=== PATIENT | male | born 1955 | race African-American/Black ===

== ENCOUNTER 2016-11-25 00:33 | Emergency (ER) | payer MEDICARE, OTHER ==
[2016-11-25 00:41] VITALS: TEMP 99
[2016-11-25] MEDS ORDERED: SODIUM CHLORIDE 0.9% 500 ML IV STA (00:49)
[2016-11-25] MEDS ORDERED: amLODIPine 10 MG TAB PO STA (01:06)
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
[2016-11-25 01:25] LABS: Basophils % (A) 0 %; CH 27.8; CHCM 33.2; Eosinophils # (A) 0.1 k/uL (0-0.7); Eosinophils % (A) 2 %; HCT 44.4 % (39.0-53.0); HDW 3.05; HGB 14.2 gm/dL (13.0-17.5); Luc # (Auto) 0.07; Luc % (Auto) 1; Lymphocytes # (A) 1.3 k/uL (1.0-4.8); Lymphocytes % (A) 21 %; MCH 27.1 pg (25.0-35.0); MCHC 32.1 g/dL (31.0-37.0); MCV 84.4 fL (80.0-100.0); Mean Platelet Volume 7.3; Monocytes # (A) 0.4 k/uL (0-1.0); Monocytes % (A) 7 %; Neutrophils # (A) 4.1 k/uL (1.3-7.7); Neutrophils % (A) 69 %; RBC 5.26 m/uL (4.30-5.90); RDW 15.1 % (11.5-15.5); WBC 5.9 k/uL (3.8-10.6); WBC (Perox) 5.69
[2016-11-25 01:32] LABS: INR 1.2 (<1.2); Prothrombin Time 12.3 sec (9.0-12.0)
[2016-11-25 01:37] LABS: ALT 47 U/L (21-72); AST 45 U/L (17-59); Acetaminophen <10.0 ug/mL; Alcohol <10 mg/dL; Alkaline Phosphatase 78 U/L (38-126); Anion Gap 14 mmol/L; Blood Urea Nitrogen 12 mg/dL (9-20); Carbon Dioxide 22 mmol/L (22-30); Chloride 106 mmol/L (98-107); Glucose 103 mg/dL (74-99); Non-African American GFR(MDRD) >60 (>60 ml/min/1.73 sqM); Potassium 3.1 mmol/L (3.5-5.1); Salicylate <1.0 mg/dL; Sodium 142 mmol/L (137-145)
[2016-11-25] MEDS ORDERED: POTASSIUM CHLORIDE ER 20 MEQ TAB.ER PO STA (02:15)
--- NOTE | 2016-11-25 03:06 | XR ---
EXAM: XR Chest, 2 Views CLINICAL HISTORY: Reason: Cough TECHNIQUE: Frontal and lateral views of the chest. COMPARISON: Chest radiograph on 10/07/2015 FINDINGS: Lungs/pleura: Normal. No focal consolidation. No pleural effusion or pneumothorax. Heart/mediastinum: Stable mild enlargement of the cardiac silhouette. Soft tissues: Unremarkable. Bones: No acute fracture. Degenerative changes of the spine. Possible resection changes of the distal right clavicle. IMPRESSION: No acute disease identified.
[2016-11-25 03:45] VITALS: BP 172/110
[2016-11-25 04:30] VITALS: PULSE 85; RESP 16
== END 2016-11-25 04:27 | disposition home or self-care (01) ==
LOC: EC 00:33
DX: G89.29 Other chronic pain (principal); M79.662 Pain in left lower leg; M79.661 Pain in right lower leg; F14.10 Cocaine abuse, uncomplicated; I51.7 Cardiomegaly; Z87.891 Personal history of nicotine dependence; Z96.653 Presence of artificial knee joint, bilateral; Z86.14 Personal history of Methicillin resistant Staphylococcus aureus infection; Z88.2 Allergy status to sulfonamides; Z88.1 Allergy status to other antibiotic agents; Z79.1 Long term (current) use of non-steroidal anti-inflammatories (NSAID); Z79.899 Other long term (current) drug therapy
CPT/HCPCS: 36415; 71020; 80053; 80306; 80320; 83520; 83605; 83690; 85025; 85610; 93005; 99283

== ENCOUNTER 2016-11-25 09:49 | Inpatient (IN) | payer MEDICARE ==
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
[2016-11-25] MEDS ORDERED: LISINOPRIL 10 MG TAB PO STA (11:58)
[2016-11-25] MEDS ORDERED: HALOPERIDOL LACTATE 5 MG/ML 1 ML VIAL IM STA (12:16)
[2016-11-25] MEDS ORDERED: LORazepam 2 MG/ML INJ IM STA (12:17)
[2016-11-25] MEDS ORDERED: cloNIDine HCL 0.1 MG TAB PO STA (14:18)
[2016-11-25] MEDS ORDERED: MAG HYDROX/AL HYDROX/SIMETH 30 ML CUP PO PRN (17:11)
[2016-11-25] MEDS ORDERED: ZIPRASIDONE 20 MG VIAL IM PRN (17:11)
[2016-11-25] MEDS ORDERED: MAGNESIUM HYDROXIDE 2,400 MG/10 ML CUP PO PRN (17:11)
[2016-11-25] MEDS: NICOTINE 21MG/24HR PATCH TRANSDERM SCH (18:11)
[2016-11-26 08:27] LABS: Basophils % (A) 0 %; CH 26.9; CHCM 31.4; Eosinophils # (A) 0.2 k/uL (0-0.7); Eosinophils % (A) 3 %; HCT 47.6 % (39.0-53.0); HDW 3.02; HGB 15.1 gm/dL (13.0-17.5); Hypochromasia Slight; Luc # (Auto) 0.09; Luc % (Auto) 2; Lymphocytes % (A) 37 %; MCH 27.4 pg (25.0-35.0); MCHC 31.7 g/dL (31.0-37.0); MCV 86.3 fL (80.0-100.0); Mean Platelet Volume 7.1; Monocytes # (A) 0.3 k/uL (0-1.0); Monocytes % (A) 5 %; Neutrophils # (A) 2.8 k/uL (1.3-7.7); Neutrophils % (A) 52 %; RBC 5.52 m/uL (4.30-5.90); RDW 14.1 % (11.5-15.5); WBC 5.4 k/uL (3.8-10.6); WBC (Perox) 5.68
[2016-11-26 09:18] LABS: ALT 33 U/L (21-72); AST 39 U/L (17-59); Alkaline Phosphatase 63 U/L (38-126); Anion Gap 13 mmol/L; Blood Urea Nitrogen 12 mg/dL (9-20); Calcium 9.6 mg/dL (8.4-10.2); Carbon Dioxide 21 mmol/L (22-30); Chloride 109 mmol/L (98-107); Glucose 87 mg/dL (74-99); Non-African American GFR(MDRD) >60 (>60 ml/min/1.73 sqM); Potassium 3.9 mmol/L (3.5-5.1); Sodium 143 mmol/L (137-145); Total Bilirubin 1.2 mg/dL (0.2-1.3); Total Protein 7.3 g/dL (6.3-8.2)
[2016-11-26] MEDS: NICOTINE 21MG/24HR PATCH TRANSDERM SCH (10:02)
--- NOTE | 2016-11-26 15:29 | HP ---
HISTORY AND PHYSICAL DATE OF SERVICE: 11/26/2016. IDENTIFYING DATA: The patient is a 61-year-old male, he had been residing with friends. He was referred through the emergency room. CHIEF COMPLAINT: The patient was admitted due to feelings of suicide and wanting to harm others. He got angry and agitated. He was making threats to kill people. He had auditory hallucinations. HISTORY OF PRESENT ILLNESS: The patient has [facility] psychiatric issues. He has had a number of psychiatric admissions in the past. He was followed through [facility]. His last contact with mental health was September 24, 2015. He has been diagnosed with schizoaffective disorder, bipolar type, cocaine use disorder, opioid dependence. He describes problems with auditory hallucinations and include command hallucinations. He says he can get into angry spells with thoughts of harming others. He describes episodes of jf where he becomes grandiose. He will get hyperverbal. He will be intrusive. He has decreased need for sleep. He will get racing thoughts and impulsive behavior. He says currently he was getting into some manic symptoms for a period of time. He was vague on specifics. He says things seem to come to a peak in the last several days prior to admission. Though he suggests that this has been building up for while. When I asked him about what stress factors there may be he just indicated that there are a lot of different things going on that build up and get more intense for him. According to medical records, he has episodes with command hallucinations and visual hallucinations seeing things like animals. He can have bizarre and erratic behavior such as swatting at things and jumping as if he is being attacked. At times he may get into depression that can become quite severe. He has hallucinations that can tell him to harm himself. Notes he has been sleeping poorly. He does have significant past substance use issues. He indicated that he has used some drugs within the last year though he says it is more occasional and he does not identify it as something causing him significant problems. He was vague on specifics. He has been on various psychotropic medications in the past. Most recently, he was prescribed Invega Sustenna 234 mg monthly and oral Invega 3 mg. Prior to that in 2015 he was on Risperdal and Risperdal Consta. He has full been on lithium, Thorazine and other medications. He continues to report hearing voices. His mood is down. He has pain issues. The patient states that he has not been to mental health for the last year because he wanted to try "doing it on my own." He has not been taking any psychotropic medications for the most part in the last year. He is admitted for further evaluation. SUBSTANCE ABUSE HISTORY: The patient has had past problems with opioids, stimulants and alcohol. He has had abuse or dependence on opioid pain medications. According to the mental health record of September to 2015 his last use of substances was over a year ago. PAST MEDICAL HISTORY: The patient reports a history of closed head injury, seizures in the past, hypertension, GERD, hyperlipidemia and COPD. FAMILY AND SOCIAL HISTORY: The patient has 3 children. He was in touch with the younger children who lives with his mother about 1 month ago, the older 2 children are in college and he has less contact with them. 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 MENTAL STATUS EXAM: Patient was dressed in hospital garb. He walked with a walker and walked quite slowly. He gave fair eye contact. Psychomotor activity was slowed. Speech was monotone and soft. He answered questions with 1 or 2 word responses. His thoughts were clear, his affect was flat. Mood depressed. He was significantly distressed. There was no outward indication of thought disorder. He described hallucinations. He voiced no thoughts of harm to self or others at the time of the interview. On cognitive exam, he was oriented x3 and alert. He did make an effort to answer formal cognitive questions. He appeared to have adequate short and long-term memory. Insight was limited. Judgment uncertain. Fund of knowledge average to somewhat below average. PHYSICAL EXAMINATION: Physical exam as per medical consultation. ASSESSMENT: This 61-year-old male is diagnosed with schizoaffective disorder, bipolar type. He has symptoms of thought disorder and mood disorder. Social support network is poor. Strengths include his awareness of psychiatric issues. Weakness includes some substance abuse issues and difficulty connecting with social supports. DIAGNOSIS: 1. Schizoaffective disorder, bipolar type with mixed mood symptoms. 2. Polysubstance dependence including opioids, stimulants and alcohol. 3. History of closed head injury. 4. History of seizure. 5. Hypertension. 6. Gastroesophageal reflux disease. 7. Thyroid disease. 8. Hyperlipidemia. 9. Chronic obstructive pulmonary disease. RECOMMENDATIONS: Patient will be admitted for comprehensive medical, psychiatric and psychosocial evaluation. We will engage the patient in individual and group therapeutic activities. I discussed treatment options with the patient. At this point, I will start him on Zyprexa 5 mg 3 times a day. The aim is Zyprexa as to address psychotic symptoms and physiologic stress response that he seems to be experiencing where we will coordinate with outpatient resources for treatment and followup care. Will focus on stabilization and discharge planning. TRACI / ADITIN: [id number] /
[2016-11-26] MEDS: IBUPROFEN 800 MG TAB PO SCH ×2 (15:38→21:58)
[2016-11-26] MEDS: OLANZapine 5 MG TAB PO SCH ×2 (15:38→21:58)
[2016-11-26] MEDS: LORazepam 1 MG TAB PO PRN (15:40)
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
[2016-11-27] MEDS: OLANZapine 5 MG TAB PO SCH (09:07)
[2016-11-27] MEDS: IBUPROFEN 800 MG TAB PO SCH ×3 (09:07→21:11)
[2016-11-27] MEDS: NICOTINE 21MG/24HR PATCH TRANSDERM SCH (09:12)
--- NOTE | 2016-11-27 15:54 | PN ---
PROGRESS NOTE DATE OF SERVICE: 11/27/2016 CHIEF COMPLAINT: The patient was admitted due to feelings of suicide and wanting to harm others. He got angry and agitated. He was making threats to kill people. He had auditory hallucinations. INTERVAL HISTORY: Patient has been doing fair. He had a quiet evening last night. He said he did not sleep too well last night, though staff observed him as sleeping 7 hours. Today he has been up. He wanders about the unit. He has not been attending groups. He keeps to himself. He tells me today that he is not doing well and continues to struggle with intense voices in his head. He was vague about what the voices tell him. It was noteworthy that when I interviewed him he would make occasional comments that were disconnected from the discussion and seemed to be his responding to internal stimuli. In addition, there were times where he would quickly jerk his head to the side as if he was looking at something. He seemed to do a little more of that as the interview went on as opposed to at the start of the interview. He has not had problems with the start of his medication. He has not had change in his general health. He tolerates his psychotropic medications. MENTAL STATUS: Patient gave fair eye contact. Psychomotor activity was somewhat restless. His speech was clear. He answered questions with brief responses. As noted, he seemed to be responding to internal stimuli. His mood was dysphoric. He was significantly distressed. It was difficult to say if his head jerking related to hallucinations as opposed to any extrapyramidal side effects. He did not show cogwheeling, rigidity or abnormal movements other than the head jerking. ASSESSMENT: I will continue the current diagnosis and treatment plan. I will increase the patient's Zyprexa to 10 mg 3 times a day. We will continue to focus on addressing psychotic symptoms, which have apparently included command hallucinations telling him to kill others and kill himself. The patient has not had any behavioral issues indicating risk for harm to self or others. We will continue to focus on stabilization and discharge planning. TRACI / MIKE: [id number] /
[2016-11-27] MEDS: OLANZapine 10 MG TAB PO SCH ×2 (16:06→21:12)
[2016-11-27] MEDS: ACETAMINOPHEN TAB 325 MG TAB PO PRN (16:11)
[2016-11-28] MEDS: OLANZapine 10 MG TAB PO SCH ×3 (08:40→21:21)
[2016-11-28] MEDS: IBUPROFEN 800 MG TAB PO SCH ×3 (08:40→21:21)
[2016-11-28] MEDS: NICOTINE 21MG/24HR PATCH TRANSDERM SCH (08:41)
--- NOTE | 2016-11-28 08:53 | P.PN ---
Progress Note - Text Interval history: The patient is found in the hallway he follows me to an interview room reluctantly. It appears the patient was admitted with symptoms of psychosis and feelings of aggression. He states "I don't know why they're doing this to me again" he endorses auditory and visual hallucinations but states "I can't explain them to you". He reports he slept last night staff documented 6 hours. He reports eating this morning. It does not appear he is attending groups. Mental status exam: The patient is alert he is dressed in hospital attire and wearing his own pants. He ambulates with a walker. He has a disheveled appearance. He makes no eye contact he stares out the window. He has a sudden jerking motion of his head and neck noticed several times throughout the interview. Upon ending our session he stands up and stares out of the window for several seconds before leaving. He endorses auditory and visual hallucinations but provides no description. He provides no response when asked about suicidal or homicidal thoughts. Affect is flat. He demonstrates no verbal or physical aggressiveness. He is oriented to being in the hospital and correctly names the year. He incorrectly name the day of the week as Wednesday in incorrectly name the month of the year is July. Plan: The patient will be continued on the Zyprexa as written. Vital signs reviewed. He is encouraged to participate in the milieu. We will continue to monitor him for safety.
[2016-11-29] MEDS: NICOTINE 21MG/24HR PATCH TRANSDERM SCH (09:33)
[2016-11-29] MEDS: IBUPROFEN 800 MG TAB PO SCH ×2 (09:33→15:49)
[2016-11-29] MEDS: OLANZapine 10 MG TAB PO SCH ×2 (09:35→15:49)
--- NOTE | 2016-11-29 12:18 | P.PN ---
Progress Note - Text Interval history: The patient is found in his room sleeping. He is verbally arousable. He does not wish to go to an interview room to speak today. He states his mood is "not so good". He nonspecifically describes having voices still area he indicates they direct self-harm. He reports sleeping last night but still feels tired today. He reportedly did go down for breakfast. He has not been attending groups today. Mental status exam: The patient is lying in bed he has no eye contact. He is endorsing ongoing hallucinations with suicidal thinking. He is in no acute distress. He demonstrates no verbal or physical aggressiveness. He demonstrates no abnormal involuntary movements. Insight and judgment remain impaired. He does not appear hypomanic or manic. He provides no spontaneous speech and only provides brief answers to questions asked today. He clearly is not motivated to participate in this interview today. Plan: The patient will continue on his current psychotropic medications specifically the Zyprexa. We will monitor him for safety and encourage his participation in the milieu. I'll signs are reviewed.
[2016-11-29] MEDS: LORazepam 1 MG TAB PO PRN (12:30)
[2016-11-30] MEDS: IBUPROFEN 800 MG TAB PO SCH ×4 (03:32→22:04)
[2016-11-30] MEDS: OLANZapine 10 MG TAB PO SCH ×4 (03:32→22:03)
[2016-11-30] MEDS: NICOTINE 21MG/24HR PATCH TRANSDERM SCH (09:48)
[2016-12-01] MEDS: ACETAMINOPHEN TAB 325 MG TAB PO PRN (04:00)
[2016-12-01] MEDS: LORazepam 1 MG TAB PO PRN (04:00)
[2016-12-01] MEDS: OLANZapine 10 MG TAB PO SCH ×3 (10:05→21:40)
[2016-12-01] MEDS: IBUPROFEN 800 MG TAB PO SCH ×3 (10:06→21:40)
[2016-12-01] MEDS: NICOTINE 21MG/24HR PATCH TRANSDERM SCH (10:07)
--- NOTE | 2016-12-01 11:59 | P.PN ---
Progress Note - Text Progress Note Date: 12/01/16 61yo AAM admitted on 11/25/16 after presenting with anger, +SI and HI, command hallucinations to harm himself and medication non-compliance. Last 24hrs: Upon presentation this morning, pt states that he is "okay". Does report continued AH that tell him "normally something I shouldn't do...to others". Reports that he has been avoiding groups as he feels the voices get louder in those settings. Does not appear to be responding to or distracted by internal stimuli during interview. However, he does appear guarded and withdrawn. He has been sleeping fairly well according to nursing reports, but pt states some disruption in sleep by voices and disturbing dreams. He has been compliant with medications, but does not feel the Zyprexa has been effective for him as of yet. No reported adverse effects to meds. Discussed the possibility of alternative antipsychotics such as Geodon. Pt has no reported h/o cardiovascular disease. Discussed the lowered risks of metabolic side effects with Geodon vs Zyprexa. However, pt opposed to any changes in his medication regimen at this time. He has taken Risperdal and Seroquel in the past with either adverse effects or ineffectiveness of medication. In addition, pt has social factors related to discharge as he states that he will not be able to return to friends or family and will need a place to stay upon discharge. This is most likely a contributing factor to his mood and progress as well. MSE: Pt appears stated age. He is disheveled with hair uncombed and wearing a hospital gown. Pt ambulating with the assistance of a walker. His speech is low and mumbled at times. Pt has poor eye contact and guarded behavior. Mood appears to be agitated, but states that he is "okay". His affect is blunted. Pt reports command hallucinations to harm others but denies active SI. Also, not vocalizing any active homicidal intent at this time. Thought process is linear and logical. Minimal short and long-term memory impairment due to closed head injury. Grossly oriented to his surroundings. Assessment: 1. Schizoaffective DO, Bipolar Type 2. Cocaine Use Disorder 3. 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 Hypertension 5. GERD 6. Dyslipidemia 7. COPD Plan: Continue current medication regimen. Discuss discharge planning with treatment team. Possible discharge on . Discussed placement with SW and she will look into the possibility of sending him to [facility] vs nursing home. Continue to monitor for safety. Encourage participation in daily groups and acclimation to current milieu.
[2016-12-02] MEDS: IBUPROFEN 800 MG TAB PO SCH ×3 (08:02→21:51)
[2016-12-02] MEDS: OLANZapine 10 MG TAB PO SCH ×3 (08:03→21:51)
[2016-12-02] MEDS: ACETAMINOPHEN TAB 325 MG TAB PO PRN (08:04)
[2016-12-02] MEDS: NICOTINE 21MG/24HR PATCH TRANSDERM SCH (08:20)
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
[2016-12-02 21:59] VITALS: RESP 16
[2016-12-03 07:07] VITALS: BP 165/99; PULSE 57; TEMP 97.7
[2016-12-03] MEDS: NICOTINE 21MG/24HR PATCH TRANSDERM SCH ×2 (09:08→09:11)
[2016-12-03] MEDS: OLANZapine 10 MG TAB PO SCH (09:08)
[2016-12-03] MEDS: IBUPROFEN 800 MG TAB PO SCH (09:08)
--- NOTE | 2016-12-03 14:39 | P.PN ---
Progress Note - Text Progress Note Date: 12/03/16 61yo AAM admitted on 11/25/16 after presenting with anger, +SI and HI, command hallucinations to harm himself and medication non-compliance. Last 24hrs: Upon presentation this morning, pt's mood continues to be fair. However, he states that he is not feeling well due to back pain and headaches. He states that he does continue to experience AH. Does not appear to be responding to or distracted by internal stimuli during interview. States that he was not able to get in touch with anyone from [facility] and plans to try calling again today prior to discharge. Continues to appear guarded and withdrawn, but cooperative. He has been sleeping fairly well according to nursing reports. He has been compliant with medications and no reported adverse effects. Has not displayed any aggressive behaviors throughout hospital stay. Continues to not participate in group activities. MSE: Pt appears stated age. He is disheveled with hair uncombed and wearing a hospital gown. Laying in bed. His speech is of normal volume, rhythm and rate. Pt has fair eye contact but guarded behavior. Mood appears to be euthymic. His affect is restricted. He active SI at this time. He reports vague thoughts of wanting to harm others, but will not specifically report any plan or specific persons he intends to harm. Thought process is linear and logical. Minimal short and long-term memory impairment due to closed head injury. Grossly oriented to his surroundings. Assessment: 1. Schizoaffective DO, Bipolar Type 2. Cocaine Use Disorder 3. 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 Hypertension 5. GERD 6. Dyslipidemia 7. COPD Plan: Continue current medication regimen. Discharge this afternoon. Patient encouraged to comply with follow-up appointments for further treatment of mental illness. Encouraged to comply with medications as well.
--- NOTE | 2016-12-03 17:14 | P.DS ---
Providers Date of admission: 11/25/16 16:10 Expected date of discharge: 12/03/16 Attending physician: Bell Parkinson, DO Consults: 11/25/16 17:11 Consult Physician Routine Consulting Provider: Alonso Jameson Consult Reason/Comments: H and P Do you want consulting provider notified?: Yes Primary care physician: Alonso Jameson - Discharge Diagnosis(es) (1) Schizoaffective disorder, bipolar type Status: Chronic (2) Cocaine abuse Status: Acute (3) Closed TBI (traumatic brain injury) Status: Chronic Priority: Low Hospital Course: Upon voluntary admission to the mental health unit, patient was started on Zyprexa 10mg TID. He was also monitored for safety throughout his hospital stay and encouraged to participate in daily group activities. Patient continued to vocalize auditory hallucinations but did not appear to be responding to internal stimuli. He mostly isolated to his room throughout hospital stay and did not attend group activities on the unit. Patient was compliant with medications and reported no adverse effects. After taking over patient's care mid-way during his hospitalization, this provider did discuss alternative antipsychotic options such as Geodon to target his reported AH. However, patient refused this option and stated that he did not want to be switched from medication to medication. His main concern seemed to be related to his housing situation as he did not have a place to live upon discharge. When this became more apparent and the discussion of discharge began, patient started making comments as if he wanted to stay in the hospital for a longer length of time. Although, he reported auditory hallucinations throughout hospital course, he did appear to be acutely psychotic and did not appear to be impaired to the point that he could not take care of himself. Also, patient denied SI, but would occasional endorse vague thoughts of harming others; however, he would not provide any more detailed information regarding these thoughts and did not display any aggressive behaviors throughout his hospital stay. Patient slept fairly well and had a good appetite during hospitalization. It was felt that patient was stable for discharge with continued psychiatric care on an outpatient basis for further evaluation and management of medication. I also strongly recommend that patient abstain from use of cocaine and other illicit substances as it can worsen auditory hallucinations and agitation. Emphasized the importance of compliance with medications and follow-up appointments for further improvement in symptoms of mental illness. Patient Condition at Discharge: Fair Plan - Discharge Summary New Discharge Prescriptions: New RX: OLANZapine [ZyPREXA] 10 mg PO TID #90 tab Continue RX: Pregabalin [Lyrica] 150 mg PO BID RX: Meloxicam [Mobic] 15 mg PO DAILY RX: HYDROcodone/APAP 10-325MG [[place] 10-325] 1 tab PO TID RX: Lisinopril [Prinivil] 5 mg PO DAILY Discharge Medication List RX: HYDROcodone/APAP 10-325MG [[place] 10-325] 1 tab PO TID 11/25/16 [History] RX: Lisinopril [Prinivil] 5 mg PO DAILY 11/25/16 [History] RX: Meloxicam [Mobic] 15 mg PO DAILY 11/25/16 [History] RX: Pregabalin [Lyrica] 150 mg PO BID 11/25/16 [History] RX: OLANZapine [ZyPREXA] 10 mg PO TID #90 tab 12/03/16 [Rx] Follow up Appointment(s)/Referral(s): [email or web address] [Outside] - 12/08/16 11:00 am (Estefani Beck arrive at 10:30 to complete paper work ) Alonso Jameson MD [Primary Care Provider] - 1-2 days Patient Instructions/Handouts: Schizoaffective Disorder (DC) Activity/Diet/Wound Care/Special Instructions: No alcohol or street drugs, diet as tolerated, remove firearms from home, activity as tolerated. Call crisis line or [phone] if having thoughts to hurt yourself or anyone else. Follow up with outpatient provider as set up at time of discharge. Discharge Disposition: HOME SELF-CARE
== END 2016-12-03 15:19 | disposition home or self-care (01) | DRG 885 ==
LOC: EC 09:49 → 3MHU 16:10
PROVIDERS: ADMIT Psychiatry & Neurology Psychiatry; ATTEND Psychiatry & Neurology Psychiatry
DX: F25.0 Schizoaffective disorder, bipolar type (principal); F11.20 Opioid dependence, uncomplicated; R45.851 Suicidal ideations; F15.20 Other stimulant dependence, uncomplicated; I10 Essential (primary) hypertension; K21.9 Gastro-esophageal reflux disease without esophagitis; E78.5 Hyperlipidemia, unspecified; J44.9 Chronic obstructive pulmonary disease, unspecified; F10.20 Alcohol dependence, uncomplicated; R45.87 Impulsiveness; R45.1 Restlessness and agitation; M19.90 Unspecified osteoarthritis, unspecified site; Z96.653 Presence of artificial knee joint, bilateral; F14.10 Cocaine abuse, uncomplicated; G89.29 Other chronic pain; F41.9 Anxiety disorder, unspecified; Z79.1 Long term (current) use of non-steroidal anti-inflammatories (NSAID); Z79.899 Other long term (current) drug therapy; Z86.14 Personal history of Methicillin resistant Staphylococcus aureus infection; Z87.891 Personal history of nicotine dependence; Z88.1 Allergy status to other antibiotic agents; Z88.2 Allergy status to sulfonamides; Z88.8 Allergy status to other drugs, medicaments and biological substances; Z87.820 Personal history of traumatic brain injury; Z91.83 Wandering in diseases classified elsewhere; Z91.14 Patient's other noncompliance with medication regimen
CPT/HCPCS: 80053; 82075; 84443; 85025; 96372; 99284